=== PATIENT | female | born 1985 | race Caucasian/White ===

== ENCOUNTER 2023-02-15 14:45 | Emergency (ER) | payer OTHER ==
[~2023-02-15] VITALS: Ht 170.2 cm; Wt 87.3 kg
[2023-02-15] MEDS ORDERED: ACETAMINOPHEN 500 MG TABLET PO ONE (15:00)
[2023-02-15] MEDS ORDERED: IBUPROFEN 600 MG TABLET PO ONE (15:00)
[2023-02-15 15:05] VITALS: TEMP 98.4
[2023-02-15 15:06] VITALS: BP 126/79; PULSE 76; RESP 16
== END 2023-02-15 15:29 | disposition home or self-care (01) ==
LOC: EMS 14:45
DX: R51.9 Headache, unspecified (principal); F43.9 Reaction to severe stress, unspecified; Z87.891 Personal history of nicotine dependence
CPT/HCPCS: 99283